=== PATIENT | male | born 1990 | race American Indian/Alaskan Native ===

== ENCOUNTER 2016-10-07 16:49 | Emergency (ER) | payer SELFPAY ==
[2016-10-07 17:32] VITALS: BP 130/81
[2016-10-07 18:36] LABS: Bilirubin,Urine NEG (Negative); Blood,Urine NEG (Negative); Ketones,Urine NEG (Negative); Leukocyte Esterase,Urine NEG (Negative); Mucus,Urine FEW /HPF; Nitrite,Urine NEG (Negative); Protein,Urine <15 mg/dL mg/dL (Negative); Urobilinogen,Urine < 2.0 mg/dL (<2.0)
== END 2016-10-07 23:02 | disposition left against medical advice (07) ==
LOC: ED 16:49
DX: N48.89 Other specified disorders of penis (principal); Z53.21 Procedure and treatment not carried out due to patient leaving prior to being seen by health care provider
CPT/HCPCS: 81001

== ENCOUNTER 2017-08-25 15:29 | Emergency (ER) | payer SELFPAY ==
[2017-08-25 15:39] VITALS: BP 130/77
== END 2017-08-25 18:34 | disposition left against medical advice (07) ==
LOC: ED 15:29
DX: S01.81XA Laceration without foreign body of other part of head, initial encounter (principal); Z53.21 Procedure and treatment not carried out due to patient leaving prior to being seen by health care provider; X58.XXXA Exposure to other specified factors, initial encounter; Y93.89 Activity, other specified; Y99.8 Other external cause status; Y92.89 Other specified places as the place of occurrence of the external cause

== ENCOUNTER 2017-12-22 17:28 | Emergency (ER) | payer MEDICAID ==
[2017-12-22 18:01] VITALS: BP 135/76
== END 2017-12-22 21:20 | disposition left against medical advice (07) ==
LOC: ED 17:28
DX: Z20.2 Contact with and (suspected) exposure to infections with a predominantly sexual mode of transmission (principal); Z53.21 Procedure and treatment not carried out due to patient leaving prior to being seen by health care provider